=== PATIENT | male | born 1955 | race Caucasian/White ===

== ENCOUNTER 2017-05-16 19:48 | Inpatient (IN) | payer BC ==
[~2017-05-16] VITALS: Ht 175.3 cm; Wt 101.6 kg
[~2017-05-16 19:48] MED LIST: HYG/25 PO; LPD600 PO; LPT40 PO; OMEG12006 PO; ONDA4TAB7 SL; TNR50 PO
[2017-05-16] MEDS ORDERED: METF-384 PO (20:02)
--- NOTE | 2017-05-16 20:36 | DIAGNOSTIC IMAGING REPORT ---
CHEST ONE VIEW PORTABLE CLINICAL HISTORY: sob dyspnea COMPARISON STUDY: 02/15/2015 FINDINGS: Mild stable cardiomegaly. Lungs are clear. Diaphragms are smooth. IMPRESSION: Mild stable cardiomegaly. Otherwise negative study The above report was generated using voice recognition software. It may contain grammatical, syntax or spelling errors. Electronically signed by: Jonah Meza M.D. 05/16/2017 8:34 PM Dictated Date/Time: 05/16/2017 8:34 PM
[2017-05-16 20:46] LABS: MEAN CELL VOLUME 66.3 fL (80-100); MEAN CORPUSCULAR HEMOGLOBIN 18.1 pg (25-34); MEAN CORPUSCULAR HGB CONC 27.3 g/dl (32-36); MEAN PLATELET VOLUME 8.1 fL (7.4-10.4); PARTIAL THROMBOPLASTIN RATIO 0.9; PLATELET COUNT 592 K/uL (130-400); PROTHROMBIN TIME (PATIENT) 10.6 SECONDS (9.0-12.0); RED BLOOD COUNT 3.32 M/uL (4.7-6.1); WHITE BLOOD COUNT 9.65 K/uL (4.8-10.8)
[2017-05-16 20:55] LABS: ALT/SGPT 21 U/L (12-78); BLOOD UREA NITROGEN 20 mg/dl (7-18); BUN/CREATININE RATIO 15.2 (10-20); CALCIUM 8.5 mg/dl (8.5-10.1); CARBON DIOXIDE 27 mmol/L (21-32); CHLORIDE 107 mmol/L (98-107); GLUCOSE 139 mg/dl (70-99); POTASSIUM 3.6 mmol/L (3.5-5.1); SODIUM 141 mmol/L (136-145)
[2017-05-16 20:59] LABS: BASO % 0.5 %; BASO ABS # 0.05 K/uL (0-0.2); COMPLETE YES; EOS % 3.7 %; HYPOCHROMIA PRESENT; IG% 0.4 %; LYMPH % 20.9 %; LYMPH ABS # 2.02 K/uL (1.2-3.4); MICROCYTOSIS PRESENT; MONO % 7.8 %; NEUT % 66.7 %
[2017-05-16 21:00] LABS: ALB/GLOB RATIO 0.8 (0.9-2); ALKALINE PHOSPHATASE 90 U/L (45-117); AST/SGOT 16 U/L (15-37)
[2017-05-16 21:28] VITALS: O2SAT 98; Ht 175.3 cm; Wt 101.6 kg
[2017-05-16 21:48] LABS: MAGNESIUM 1.8 mg/dl (1.8-2.4); THYROID STIMULATING HORMONE 1.66 uIu/ml (0.300-4.500)
[2017-05-16] MEDS ORDERED: POTASSIUM CHLORIDE 10 MEQ TABCR PO STA (21:58)
[2017-05-16] MEDS ORDERED: GLUCOSE 10 TABS/TUBE PO PRN (22:00)
[2017-05-16] MEDS ORDERED: MAGNESIUM SULFATE 1GM / D5W 1 GM in PREMIXED IN D5W 100 ML IV ONE (22:00)
[2017-05-16] MEDS ORDERED: ONDANSETRON INJ 2 MG/ML 2 ML VIAL IV PRN (22:00)
[2017-05-16] MEDS ORDERED: LACTATED RINGER'S 1000ML 1,000 ML IV SCH (22:00)
[2017-05-16] MEDS ORDERED: TRAMADOL HCL 50 MG TAB PO PRN (22:00)
[2017-05-16] MEDS ORDERED: LORAZEPAM 2 MG/ML 1 ML VIAL IV PRN (22:00)
[2017-05-16] MEDS ORDERED: DEXTROSE 50% 50 ML SYR IV PRN (22:00)
[2017-05-16] MEDS ORDERED: GLUCAGON FOR INJ 1 MG VIAL SQ PRN (22:00)
[2017-05-16] MEDS ORDERED: ACETAMINOPHEN 325 MG TAB PO PRN (22:00)
[2017-05-16] MEDS ORDERED: NITROGLYCERIN 0.4 MG SL PER TAB CHARGE SL PRN (22:00)
[2017-05-16] MEDS ORDERED: GLUCOSE 40% GEL 15 GM TUBE PO PRN (22:00)
[2017-05-16] MEDS ORDERED: POTASSIUM CHLORIDE 10 MEQ TABCR ONE (22:03)
--- NOTE | 2017-05-16 22:06 | History and Physical ---
History & Physical Date & Time of Service: May 16, 2017 at 22:05 Chief Complaint: Legs Swelled,Sob Primary Care Physician: Ottoniel Harding M.D. History of Present Illness Source: patient, clinic records, hospital records Recent confinement 2014 under general surgery service for cholecystitis with no posterior abscess formation and possible biliary leak status post laparoscopic cholecystectomy. 2 weeks history of shortness of breath on exertion. No chest pain, no cough symptoms. No symptoms of sleep-disordered breathing as per patient/.. Both legs more swollen than usual. No abdominal pain, no black or bloody stools. No unusual weight loss Denies NSAID intake. Stool Hemoccult noted to be positive at the emergency room. Past Medical/Surgical History Medical Problems: Hypertension Hyperlipidemia Colonic polyps Diabetes type 2 on oral meds Past tobacco abuse Surgeries cholecystectomy urologic procedures 2010 colonoscopy sigmoid colon polyp Family History Diabetes mellitus MOTHER Social History Smoking Status: Former Smoker Alcohol Use: none Drug Use: none Marital Status: Occupational Status: employed, other Multi-Drug Resistant Organisms History of MDRO: No Allergies Coded Allergies: No Known Allergies (Verified , 05/16/17) Home Medications Scheduled Atenolol (Atenolol), 50 MG PO DAILY Atorvastatin (Atorvastatin Calcium), 40 MG PO DAILY Chlorthalidone (Hygroton), 25 MG PO QAM Gemfibrozil (Gemfibrozil), 600 MG PO BID Metformin Hcl (Glucophage), 1 TAB PO BID [place]-3 Fatty Acids ([place] 3), 1 CAPSULE PO DAILY Review of Systems As per history of present illness all other ROS negative Physical Exam Vital Signs Date Time Temp Pulse Resp B/P (MAP) Pulse Ox O2 Delivery O2 Flow Rate FiO2 05/16/17 21:28 98 Room Air 05/16/17 20:25 81 05/16/17 19:51 37.0 90 20 152/72 98 Room Air General Appearance: + obese, + pertinent finding (slight anxious) Head: normocephalic Eyes: + pertinent finding (pale palpebral conjunctivae debacle mucosa) Neck: + pertinent finding (short) Respiratory/Chest: + decreased breath sounds Cardiovascular: regular rate, rhythm Abdomen/GI: soft, + pertinent finding (some distention) Extremities/Musculoskelatal: non-tender, + pertinent finding (minimal lower extremity swelling) Neurologic/Psych: alert, oriented x 3 Skin: + pallor Diagnostics Laboratory Results Results Past 24 Hours Test 05/16/17 20:17 05/16/17 21:18 Range/Units White Blood Count 9.65 4.8-10.8 K/uL Red Blood Count 3.32 4.7-6.1 M/uL Hemoglobin 6.0 14.0-18.0 g/dL Hematocrit 22.0 42-52 % Mean Corpuscular Volume 66.3 80-100 fL Mean Corpuscular Hemoglobin 18.1 25-34 pg Mean Corpuscular Hemoglobin Concent 27.3 32-36 g/dl Platelet Count 592 130-400 K/uL Mean Platelet Volume 8.1 7.4-10.4 fL Neutrophils (%) (Auto) 66.7 % Lymphocytes (%) (Auto) 20.9 % Monocytes (%) (Auto) 7.8 % Eosinophils (%) (Auto) 3.7 % Basophils (%) (Auto) 0.5 % Neutrophils # (Auto) 6.43 1.4-6.5 K/uL Lymphocytes # (Auto) 2.02 1.2-3.4 K/uL Monocytes # (Auto) 0.75 0.11-0.59 K/uL Eosinophils # (Auto) 0.36 0-0.5 K/uL Basophils # (Auto) 0.05 0-0.2 K/uL RDW Standard Deviation 41.9 36.4-46.3 fL RDW Coefficient of Variation 17.3 11.5-14.5 % Immature Granulocyte % (Auto) 0.4 % Immature Granulocyte # (Auto) 0.04 0.00-0.02 K/uL Hypochromasia PRESENT Microcytosis PRESENT Prothrombin Time 10.6 9.0-12.0 SECONDS Prothromb Time International Ratio 1.0 0.9-1.1 Activated Partial Thromboplast Time 24.6 21.0-31.0 SECONDS Partial Thromboplastin Ratio 0.9 D-Dimer 450 0-500 ug/L FEU Sodium Level 141 136-145 mmol/L Potassium Level 3.6 3.5-5.1 mmol/L Chloride Level 107 98-107 mmol/L Carbon Dioxide Level 27 21-32 mmol/L Anion Gap 7.0 3-11 mmol/L Blood Urea Nitrogen 20 7-18 mg/dl Creatinine 1.30 0.60-1.40 mg/dl Est Creatinine Clear Calc Drug Dose 70.6 ml/min Estimated GFR () 68.3 Estimated GFR (Non- 58.9 BUN/Creatinine Ratio 15.2 10-20 Random Glucose 139 70-99 mg/dl Calcium Level 8.5 8.5-10.1 mg/dl Magnesium Level 1.8 1.8-2.4 mg/dl Total Bilirubin 0.2 0.2-1 mg/dl Aspartate Amino Transf (AST/SGOT) 16 15-37 U/L Alanine Aminotransferase (ALT/SGPT) 21 12-78 U/L Alkaline Phosphatase 90 45-117 U/L Troponin I < 0.015 0-0.045 ng/ml Pro-B-Type Natriuretic Peptide 155 0-900 pg/ml Total Protein 7.0 6.4-8.2 gm/dl Albumin 3.2 3.4-5.0 gm/dl Globulin 3.8 2.5-4.0 gm/dl Albumin/Globulin Ratio 0.8 0.9-2 Thyroid Stimulating Hormone (TSH) 1.660 0.300-4.500 uIu/ml CXR normal EKG As per my interpretation: Rate 80, normal sinus rhythm with flattening inferior leads Impression Assessment and Plan AP Shortness of breath secondary to symptomatic anemia Occult GI bleed History colonic polyp on colonoscopy 2010 Rule out right-sided heart failure with concomitant complaints of bilateral lower extremity swelling Hypertension, stable DM 2 on oral meds, well controlled as of recent outpx hemoglobin A1c of 6.6 last December 2016 Past tobacco abuse PCU Transfuse packed RBC to maintain hemoglobin greater then 7 and/or for symptomatic anemia Anemia workup TTE re: SOB w/ leg swelling rule out pulmonary hypertension, right-sided heart failure GI consult re: occult GI bleed, symptomatic anemia ISS BG goal 140-180, patient due for hemoglobin A1c check DVT prophylaxis SCDs re: GI bleed Full code Advanced Directives Existing Living Will: No Existing Power of Easement Worker: No VTE Prophylaxis VTE Risk Assessment Done? Y/N: Yes Risk Level: Moderate
[2017-05-16 22:17] VITALS: BP 134/69; PULSE 81; TEMP 36.7; O2SAT 96
[2017-05-16] MEDS ORDERED: LORAZEPAM INJ 0.5 MG in SYRINGE 0.75 ML IV PRN (22:45)
--- NOTE | 2017-05-16 23:20 | EMERGENCY ROOM VISIT NOTE ---
History First contact with patient: 19:55 Chief Complaint: SWELLING TO EXTREMITY Stated Complaint: SYMPTOMATIC ANEMIA History of Present Illness The patient is a 62 year old male who presents to the Emergency Room with complaints of shortness of breath and leg swelling. The patient states that over the past few weeks, he has had shortness of breath with exertion. 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 However, the patient states that a few days ago he was mowing his lawn with a push mower and had to stop due to shortness of breath. He states his symptoms improved with rest. He also states that over the past 2 days, he has noticed swelling to both of his legs. He denies any pain in the legs. The patient denies any symptoms at this time. He denies chest pain, shortness of breath, nausea, vomiting or diarrhea. He denies any melena or hematochezia. He reports a history of hypertension and cholecystectomy but is otherwise healthy. He denies any cardiac history or history of blood clots. He does not smoke. Review of Systems A complete 10 point review of systems was reviewed with the patient with pertinent positives and negatives as per history of present illness. All else were negative. Past Medical/Surgical History Medical Problems: (1) Abdominal pain (2) Abdominal pain (3) Symptomatic anemia Family History Diabetes mellitus MOTHER Social History Smoking Status: Former Smoker Drug Use: none Marital Status: Housing Status: lives with family Occupation Status: employed Current/Historical Medications Scheduled Atenolol (Atenolol), 50 MG PO DAILY Atorvastatin (Atorvastatin Calcium), 40 MG PO DAILY Chlorthalidone (Hygroton), 25 MG PO QAM Gemfibrozil (Gemfibrozil), 600 MG PO BID Metformin Hcl (Glucophage), 1 TAB PO BID [place]-3 Fatty Acids ([place] 3), 1 CAPSULE PO DAILY Physical Exam Vital Signs Date Time Temp Pulse Resp B/P (MAP) Pulse Ox O2 Delivery O2 Flow Rate FiO2 05/16/17 20:25 81 05/16/17 19:51 37.0 90 20 152/72 98 Room Air Pain Rating (0-10): 0 Physical Exam VITALS: Vitals are noted on the nurse's note and reviewed by myself. Vital signs stable. GENERAL: This is a 62-year-old male, in no acute distress, nondiaphoretic, well- developed well-nourished. SKIN: The skin is pale. HEENT: Normocephalic. PERRLA. EOMI. Nares patent. Mucous membranes moist. Neck is supple without nuchal rigidity. HEART: Regular rate and rhythm without murmurs gallops or rubs. LUNGS: Clear to auscultation bilaterally without wheezes, rales or rhonchi. ABDOMEN: Soft, nontender to palpation. RECTAL: Light brown heme-positive stool. EXTREMITIES: 1+ pitting edema bilaterally. No tenderness of the calves. NEURO: Patient was alert and oriented to person place and time. Medical Decision & Procedures ER Provider Diagnostic Interpretation: CHEST ONE VIEW PORTABLE FINDINGS: Mild stable cardiomegaly. Lungs are clear. Diaphragms are smooth. IMPRESSION: Mild stable cardiomegaly. Otherwise negative study Laboratory Results 05/16/17 20:17 Red Blood Count 3.32, Mean Corpuscular Volume 66.3, Mean Corpuscular Hemoglobin 18.1, Mean Corpuscular Hemoglobin Concent 27.3, Mean Platelet Volume 8.1, Neutrophils (%) (Auto) 66.7, Lymphocytes (%) (Auto) 20.9, Monocytes (%) (Auto) 7.8, Eosinophils (%) (Auto) 3.7, Basophils (%) (Auto) 0.5, Neutrophils # (Auto) 6.43, Lymphocytes # (Auto) 2.02, Monocytes # (Auto) 0.75, Eosinophils # (Auto) 0.36, Basophils # (Auto) 0.05 05/16/17 20:17 Test 05/16/17 20:17 White Blood Count 9.65 K/uL (4.8-10.8) Red Blood Count 3.32 M/uL (4.7-6.1) Hemoglobin 6.0 g/dL (14.0-18.0) Hematocrit 22.0 % (42-52) Mean Corpuscular Volume 66.3 fL (80-100) Mean Corpuscular Hemoglobin 18.1 pg (25-34) Mean Corpuscular Hemoglobin Concent 27.3 g/dl (32-36) Platelet Count 592 K/uL (130-400) Mean Platelet Volume 8.1 fL (7.4-10.4) Neutrophils (%) (Auto) 66.7 % Lymphocytes (%) (Auto) 20.9 % Monocytes (%) (Auto) 7.8 % Eosinophils (%) (Auto) 3.7 % Basophils (%) (Auto) 0.5 % Neutrophils # (Auto) 6.43 K/uL (1.4-6.5) Lymphocytes # (Auto) 2.02 K/uL (1.2-3.4) Monocytes # (Auto) 0.75 K/uL (0.11-0.59) Eosinophils # (Auto) 0.36 K/uL (0-0.5) Basophils # (Auto) 0.05 K/uL (0-0.2) RDW Standard Deviation 41.9 fL (36.4-46.3) RDW Coefficient of Variation 17.3 % (11.5-14.5) Immature Granulocyte % (Auto) 0.4 % Immature Granulocyte # (Auto) 0.04 K/uL (0.00-0.02) Hypochromasia PRESENT Microcytosis PRESENT Prothrombin Time 10.6 SECONDS (9.0-12.0) Prothromb Time International Ratio 1.0 (0.9-1.1) Activated Partial Thromboplast Time 24.6 SECONDS (21.0-31.0) Partial Thromboplastin Ratio 0.9 D-Dimer 450 ug/L FEU (0-500) Anion Gap 7.0 mmol/L (3-11) Est Creatinine Clear Calc Drug Dose 70.6 ml/min Estimated GFR () 68.3 Estimated GFR (Non- 58.9 BUN/Creatinine Ratio 15.2 (10-20) Calcium Level 8.5 mg/dl (8.5-10.1) Magnesium Level 1.8 mg/dl (1.8-2.4) Total Bilirubin 0.2 mg/dl (0.2-1) Aspartate Amino Transf (AST/SGOT) 16 U/L (15-37) Alanine Aminotransferase (ALT/SGPT) 21 U/L (12-78) Alkaline Phosphatase 90 U/L (45-117) Troponin I < 0.015 ng/ml (0-0.045) Pro-B-Type Natriuretic Peptide 155 pg/ml (0-900) Total Protein 7.0 gm/dl (6.4-8.2) Albumin 3.2 gm/dl (3.4-5.0) Globulin 3.8 gm/dl (2.5-4.0) Albumin/Globulin Ratio 0.8 (0.9-2) Thyroid Stimulating Hormone (TSH) 1.660 uIu/ml (0.300-4.500) Medical Decision Differential diagnosis includes anemia, infection, electrolyte imbalance, CHF, pulmonary embolism, among others. The patient is a 62-year-old male who presents today complaining of shortness of breath on exertion. Labs revealed a hemoglobin of 6. Patient has no history of anemia. Rectal exam was performed at this time and found to be heme- positive. Type and cross were ordered. I suspect the patient has likely had a lower GI bleed for some time, as he has been compensating very well for this significant anemia. All findings were discussed with the patient. He will need to be admitted for further workup and blood transfusion. He verbalized understanding of the assessment and treatment plan. Case was discussed with the [facility] hospitalist, Dr. Gomez, who agreed to evaluate the patient for admission. The patient's case was reviewed with Dr. Clifton, ED attending physician, who agreed with my assessment and treatment plan. Medication Reconcilliation Current Medication List: was personally reviewed by me Blood Pressure Screening Patient's blood pressure: Normal blood pressure Impression Primary Impression: Anemia Additional Impression: GI bleed Departure Information Dispostion Admitted as an inpatient Condition GOOD Referrals Ottoniel Harding M.D. (PCP) Forms WORK / SCHOOL INSTRUCTIONS, HOME CARE DOCUMENTATION FORM, IMPORTANT VISIT INFORMATION Patient Instructions My [facility] Problem Qualifiers
[2017-05-16 23:48] VITALS: BP 133/59; PULSE 80; TEMP 36.9; O2SAT 97
[2017-05-17] VITALS (17 sets, daily range): BP systolic 118–151; BP diastolic 62–81; PULSE 56–87; TEMP 36.5–37; O2SAT 94–98
[2017-05-17 05:53] LABS: HEMATOCRIT 23.7 % (42-52); MEAN CELL VOLUME 67.3 fL (80-100); MEAN CORPUSCULAR HEMOGLOBIN 19.3 pg (25-34); MEAN CORPUSCULAR HGB CONC 28.7 g/dl (32-36); MEAN PLATELET VOLUME 8.4 fL (7.4-10.4); PLATELET COUNT 568 K/uL (130-400); RED BLOOD COUNT 3.52 M/uL (4.7-6.1); WHITE BLOOD COUNT 7.56 K/uL (4.8-10.8)
[2017-05-17 06:02] LABS: BASO % 0.9 %; BASO ABS # 0.07 K/uL (0-0.2); COMPLETE YES; EOS % 5.6 %; HYPOCHROMIA PRESENT; IG% 0.4 %; LYMPH % 26.3 %; LYMPH ABS # 1.99 K/uL (1.2-3.4); MICROCYTOSIS PRESENT; MONO % 8.3 %; NEUT % 58.5 %
[2017-05-17 06:07] LABS: FERRITIN 4.1 ng/ml (8.0-388.0)
[2017-05-17] MEDS: INSULIN ASPART 100 UNITS/ML 3 ML PEN SC SCH ×4 (07:00→21:26)
[2017-05-17] MEDS ORDERED: PERFLUTREN LIPID MICROSPHERE (DEFINITY) IV ONE (07:15)
[2017-05-17] MEDS: GEMFIBROZIL 600 MG TAB PO SCH ×2 (07:42→21:23)
[2017-05-17] MEDS: ATORVASTATIN 40 MG TAB PO SCH (07:42)
[2017-05-17 07:56] LABS: ESTIMATED AVERAGE GLUCOSE 154 mg/dl; HA1C FLAG Normal (Normal)
--- NOTE | 2017-05-17 09:29 | Progress Note ---
Medicine Progress Note Date & Time of Visit: May 17, 2017 at 09:06. Subjective Pt was seen and examined Lying in bed with no distress Pt said that he feels fine He said that his energy seems better His lower extremities swelling improved he said that his SOB only occurs on exertion He denies any chest pain, palpitation, dizziness Objective Last 8 Hrs Date Time Temp Pulse Resp B/P (MAP) Pulse Ox O2 Delivery O2 Flow Rate FiO2 05/17/17 08:00 Room Air 05/17/17 07:32 36.9 65 18 131/62 (85) 97 Room Air 05/17/17 06:48 36.6 78 18 131/73 95 05/17/17 06:33 36.6 66 18 136/65 97 05/17/17 04:00 Room Air 05/17/17 03:40 36.8 68 18 135/75 97 05/17/17 02:23 36.8 69 18 149/76 97 05/17/17 01:53 36.5 73 18 151/62 98 05/17/17 01:32 36.5 75 18 118/64 97 05/17/17 01:17 37.0 72 18 138/66 97 Physical Exam: General- No acute distress Head- atraumatic Eyes- PERRL, EOMI ENT- oropharynx clear Neck- supple, no JVD Lungs- clear to auscultation Heart- regular rhythm; no murmur Abdomen- normal bowel sounds, soft, nontender Extremities- trace edema, no calf tenderness Neuro- alert, oriented x 3; PERRL, EOMI; no facial palsy; no dysarthria Skin- warm & dry Laboratory Results: Last 24 Hours Test 05/16/17 20:17 05/17/17 05:25 05/17/17 06:30 White Blood Count 9.65 K/uL 7.56 K/uL Red Blood Count 3.32 M/uL 3.52 M/uL Hemoglobin 6.0 g/dL 6.8 g/dL Hematocrit 22.0 % 23.7 % Mean Corpuscular Volume 66.3 fL 67.3 fL Mean Corpuscular Hemoglobin 18.1 pg 19.3 pg Mean Corpuscular Hemoglobin Concent 27.3 g/dl 28.7 g/dl Platelet Count 592 K/uL 568 K/uL Mean Platelet Volume 8.1 fL 8.4 fL Neutrophils (%) (Auto) 66.7 % 58.5 % Lymphocytes (%) (Auto) 20.9 % 26.3 % Monocytes (%) (Auto) 7.8 % 8.3 % Eosinophils (%) (Auto) 3.7 % 5.6 % Basophils (%) (Auto) 0.5 % 0.9 % Neutrophils # (Auto) 6.43 K/uL 4.42 K/uL Lymphocytes # (Auto) 2.02 K/uL 1.99 K/uL Monocytes # (Auto) 0.75 K/uL 0.63 K/uL Eosinophils # (Auto) 0.36 K/uL 0.42 K/uL Basophils # (Auto) 0.05 K/uL 0.07 K/uL RDW Standard Deviation 41.9 fL 43.9 fL RDW Coefficient of Variation 17.3 % 17.8 % Immature Granulocyte % (Auto) 0.4 % 0.4 % Immature Granulocyte # (Auto) 0.04 K/uL 0.03 K/uL Hypochromasia PRESENT PRESENT Microcytosis PRESENT PRESENT Prothrombin Time 10.6 SECONDS Prothromb Time International Ratio 1.0 Activated Partial Thromboplast Time 24.6 SECONDS Partial Thromboplastin Ratio 0.9 D-Dimer 450 ug/L FEU Sodium Level 141 mmol/L Potassium Level 3.6 mmol/L Chloride Level 107 mmol/L Carbon Dioxide Level 27 mmol/L Anion Gap 7.0 mmol/L Blood Urea Nitrogen 20 mg/dl Creatinine 1.30 mg/dl Est Creatinine Clear Calc Drug Dose 70.6 ml/min Estimated GFR () 68.3 Estimated GFR (Non- 58.9 BUN/Creatinine Ratio 15.2 Random Glucose 139 mg/dl Estimated Average Glucose 154 mg/dl Hemoglobin A1c 7.0 % Calcium Level 8.5 mg/dl Magnesium Level 1.8 mg/dl Total Bilirubin 0.2 mg/dl Aspartate Amino Transf (AST/SGOT) 16 U/L Alanine Aminotransferase (ALT/SGPT) 21 U/L Alkaline Phosphatase 90 U/L Troponin I < 0.015 ng/ml Pro-B-Type Natriuretic Peptide 155 pg/ml Total Protein 7.0 gm/dl Albumin 3.2 gm/dl Globulin 3.8 gm/dl Albumin/Globulin Ratio 0.8 Thyroid Stimulating Hormone (TSH) 1.660 uIu/ml Absolute Reticulocyte Count 0.07 10^6/uL Percent Reticulocyte Count 1.9 % Iron Level 43 mcg/dl Total Iron Binding Capacity 425 mcg/dl Transferrin 354 mg/dl Transferrin % Saturation 9 % Ferritin 4.1 ng/ml Vitamin B12 Level 236 pg/mL Folate 13.93 ng/mL Bedside Glucose 111 mg/dl Assessment & Plan Anemia Present with fatigue and SOB on exertion with Hgb 6 Guaiac positive in the ER Received 2 units PRBC Hbg this morning 6.8 repeat H/H at 1300 Continue gentle IVF Iron panel done that showed low ferritin and transferrin saturation level GI on board Case discussed with GI that plan for EGD this morning Keep NPO for now If EGD negative and hgb stable, can arrange for colonoscopy as an outpatient Monitor h/h Shortness of Breath associated with B/L LE edema that is improved today Possible related to anemia Echo pending to r/o any cardiac etiology CXR is unremarkable HTN Continue atenolol and chlorthalidone BP stable DM Type 2 Hba1c 7 (05/17/17 metformin on hold continue insulin coverage DVT px on SCDs due to anemia and positive FOBT CODE STATUS FULL CODE Consultants: Gastro Current Inpatient Medications: Current Inpatient Medications Medications (Trade) Dose Ordered Sig/Makayla Route Start Time Stop Time Status Last Admin Dose Admin Acetaminophen (Tylenol Tab) 650 mg Q4H PRN PO 05/16/17 22:00 06/15/17 21:59 Nitroglycerin (Nitrostat Tab) 0.4 mg UD PRN SL 05/16/17 22:00 06/15/17 21:59 Insulin Aspart (novoLOG ASPART) SLIDING SCALE If C... ACHS SC 05/17/17 07:00 06/16/17 06:59 Glucose (Glucose 40% Gel) 15-30 GRAMS 15 GRAMS... UD PRN PO 05/16/17 22:00 06/15/17 21:59 Glucose (Glucose Chew Tab) 4-8 Tablets 4 Tabl... UD PRN PO 05/16/17 22:00 06/15/17 21:59 Dextrose (Dextrose 50% 50ML Syringe) 25-50ML OF 50% DW IV FOR... UD PRN IV 05/16/17 22:00 06/15/17 21:59 Glucagon (Glucagon Inj) 1 mg UD PRN SQ 05/16/17 22:00 06/15/17 21:59 Atenolol (Tenormin Tab) 50 mg DAILY PO 05/17/17 09:00 06/16/17 08:59 05/17/17 07:42 50 MG Atorvastatin Calcium (Lipitor Tab) 40 mg DAILY PO 05/17/17 09:00 06/16/17 08:59 05/17/17 07:42 40 MG Gemfibrozil (Lopid Tab) 600 mg BID PO 05/17/17 09:00 06/16/17 08:59 05/17/17 07:42 600 MG Lorazepam (Ativan Inj) 0.5 mg Q4H PRN IV 05/16/17 22:00 06/15/17 21:59 Ondansetron HCl (Zofran Inj) 4 mg Q6H PRN IV 05/16/17 22:00 06/15/17 21:59 Tramadol HCl (Ultram Tab) 25 mg Q6H PRN PO 05/16/17 22:00 06/15/17 21:59 Lactated Ringer's 1,000 ml @ 40 mls/hr Q24H IV 05/16/17 22:00 06/15/17 21:59 05/16/17 22:50 40 MLS/HR Lorazepam 0.5 mg/ Syringe 1 ml @ 1 mls/min Q4H PRN IV 05/16/17 22:45 06/15/17 22:44
[2017-05-17] MEDS ORDERED: LIDOCAINE HCL 2% 2 ML VIAL (20MG/ML) ONE (10:06)
[2017-05-17] MEDS ORDERED: PROPOFOL IV EMULSION 10 MG/ML 20 ML VIAL IV ONE (10:06)
--- NOTE | 2017-05-17 10:48 | Clinical Documentation Query ---
CLINICAL DOCUMENTATION QUERY 62 year old male who presents to the Emergency Room with complaints of shortness of breath and leg swelling. H/H was found to 6.0/22.0. In your clinical opinion is this patient being managed for: ( ) Acute blood loss anemia treated with 2 units of PRBC's ( ) Other explanation of clinical findings (Please Explain) ( ) Unable to determine (Please Define) ( ) Need to Discuss ( ) Not Agree The medical record reflects the following clinical findings, treatment, and risk factors. Clinical Indicators: As above. +FOCB Treatment: 2 units of PRBC's, serial CBC's, GI consult Risk Factors: GI bleeding Please clarify and document your clinical opinion in the progress notes and discharge summary. Terms such as "probable", "suspected", "likely", "questionable", "possible", or "still to be ruled out" are acceptable. IF IN AGREEMENT, YOU MUST DOCUMENT ABOVE DIAGNOSTIC STATEMENT IN DAILY PROGRESS NOTES AND DISCHARGE SUMMARY. This document is not part of the patient's record. Thank You, Castillo Perez, RN [phone]
--- NOTE | 2017-05-17 11:17 | Anesthesiology Progress Note ---
Anesthesia Post Op Note Date & Time May 17, 2017 at 11:16 Vital Signs Pain Intensity: 0 Vital Signs Past 12 Hours Date Time Temp Pulse Resp B/P (MAP) Pulse Ox O2 Delivery O2 Flow Rate FiO2 05/17/17 11:02 64 18 122/61 (81) 94 Room Air 05/17/17 10:06 36.5 58 20 131/84 (100) 96 Room Air 05/17/17 08:00 Room Air 05/17/17 07:32 36.9 65 18 131/62 (85) 97 Room Air 05/17/17 06:48 36.6 78 18 131/73 95 05/17/17 06:33 36.6 66 18 136/65 97 05/17/17 04:00 Room Air 05/17/17 03:40 36.8 68 18 135/75 97 05/17/17 02:23 36.8 69 18 149/76 97 05/17/17 01:53 36.5 73 18 151/62 98 05/17/17 01:32 36.5 75 18 118/64 97 05/17/17 01:17 37.0 72 18 138/66 97 05/17/17 01:02 37.0 75 16 138/67 97 05/17/17 00:47 37.0 73 16 140/68 95 05/16/17 23:59 Room Air 05/16/17 23:48 36.9 80 18 133/59 (83) 97 Room Air Notes Mental Status: alert / awake / arousable, participated in evaluation Pt Amnestic to Procedure: Yes Nausea / Vomiting: adequately controlled Pain: adequately controlled Airway Patency, RR, SpO2: stable & adequate BP & HR: stable & adequate Hydration State: stable & adequate Anesthetic Complications: no major complications apparent
--- NOTE | 2017-05-17 11:20 | GI REPORT ---
Procedure Date: 05/17/2017 10:46 AM Procedure: Upper GI endoscopy Indications: Iron deficiency anemia secondary to chronic blood loss, Heme positive stool Medicines: See the Anesthesia note for documentation of the administered medications Complications: No immediate complications. Estimated Blood Loss: Estimated blood loss was minimal. Procedure: Pre-Anesthesia Assessment: - Prior to the procedure, a History and Physical was performed, and patient medications, allergies and sensitivities were reviewed. The patient's tolerance of previous anesthesia was reviewed. - The risks and benefits of the procedure and the sedation options and risks were discussed with the patient. All questions were answered and informed consent was obtained. - Patient identification and proposed procedure were verified prior to the procedure by the physician and the nurse. The procedure was verified in the pre-procedure area. - Pre-procedure physical examination revealed no contraindications to sedation. - After reviewing the risks and benefits, the patient was deemed in satisfactory condition to undergo the procedure. After obtaining informed consent, the endoscope was passed under direct vision. Throughout the procedure, the patient's blood pressure, pulse, and oxygen saturations were monitored continuously. The Scope was introduced through the mouth, and advanced to the fourth part of the duodenum. Small bowel enteroscopy was deemed necessary due to anemia concerning for small bowel disease. The upper GI endoscopy was accomplished without difficulty. The patient tolerated the procedure well. Findings: The esophagus was normal. The stomach was normal. The duodenum to the 4th part was normal. Biopsies for histology were taken with a cold forceps for evaluation of celiac disease. Verification of patient identification for the specimen was done by the physician and nurse using the patient's name and medical record number. Estimated blood loss was minimal. The cardia and gastric fundus were normal on retroflexion. Impression: - Normal esophagus. - Normal stomach. - Normal duodenum to the 4th part. Biopsied. Recommendation: - Await pathology results. - [facility] to [facility] for [facility] care. Robby Fuller M.D. Robby Fuller MD 05/17/2017 11:19:48 AM This report has been signed electronically. Note Initiated On: 05/17/2017 10:46 AM I attest to the content of the Intraoperative Record and orders documented therein, exceptions below
--- NOTE | 2017-05-17 11:20 | ECHOCARDIOGRAM REPORT ---
*NOTICE TO RECEIVING CONSTITUTION PARTY AGENCY This information is strictly Confidential and protected under [place] law. [place] law prohibits you from making any further disclosure of this information unless further disclosure is expressly permitted by the written consent of the person to whom it pertains or is authorized by law. A general authorization for the release of medical or other information is not sufficient for this purpose. Hospital accepts no responsibility if the information is made available to any other person, INCLUDING THE PATIENT. Interpretation Summary * Name: PAIGE LAWS Study Date: 05/17/2017 06:40 AM BP: 131/62 mmHg * Patient Location: C.2E\S\E205\S\1 HR: 65 * : 1955 (M/d/yyyy) Gender: Male Height: 69 in * Age: 62 yrs Ethnicity: CA Weight: 227 lb * Ordering Physician: Bro Gomez * Referring Physician: Self, Referred * Performed By: Delaney Rowan RDCS * * Reason For Study: SOB * BSA: 2.2 m2 * The study was technically adequate. * There is no comparison study available. * -- Conclusions -- * Ejection Fraction = 60-65%. * There is mild concentric left ventricular hypertrophy. * The left atrium is moderately dilated. * Diastolic dysfunction, Grade II (pseudonormalization pattern). * The right ventricular cavity size is normal (basal dimension <4.2 cm in right ventricular apical 4-chamber view). * The right ventricular systolic function is normal as assessed by tricuspid annular plane systolic excursion (TAPSE) (normal >1.5 cm). * There is trace mitral regurgitation. Procedure Details * A contrast injection of Definity was performed to improve assessment of LV function. * Contrast was injected into an intravenous site in the right arm. * One vial of Definity ultrasound contrast was diluted in normal saline to a total volume of 10 ml. A total of '2' ml of solution was administered during imaging. * Lot # [id number] of Definity utilized for procedure. * Expiration date JUN 15. * The attending nurse who injected the contrast agent was TENNILLE NEWTON RN. * A complete two-dimensional transthoracic echocardiogram was performed (2D, M-mode, Doppler and color flow Doppler). Left Ventricle * The left ventricle is normal in size. * There is mild concentric left ventricular hypertrophy. * Ejection Fraction = 60-65%. * Left ventricular systolic function is normal. * The left ventricular wall motion is normal. Right Ventricle * The right ventricle is normal size. * The right ventricular cavity size is normal (basal dimension <4.2 cm in right ventricular apical 4-chamber view). * The right ventricular systolic function is normal as assessed by tricuspid annular plane systolic excursion (TAPSE) (normal >1.5 cm). Atria * The left atrium is moderately dilated. * Right atrial size is normal. * There is no evidence of atrial septal defect, but resolution does not allow assessment for a patent foramen ovale. Mitral Valve * The mitral valve is normal. * There is no mitral valve stenosis. * There is trace mitral regurgitation. Tricuspid Valve * The tricuspid valve is normal. * There is no tricuspid stenosis. * Significant tricuspid regurgitation is absent. Aortic Valve * The aortic valve is trileaflet. * Aortic stenosis is absent. * There is no significant aortic regurgitation. Pulmonic Valve * The pulmonary valve is not well seen, but the Doppler examination is normal without significant regurgitation or stenosis. Great Vessels * The aortic root is normal size. Pericardium/Pleural * There is no pericardial effusion. Great Vessels * IVC not well visualized. Left Ventricular Diastolic Function * Diastolic dysfunction, Grade II (pseudonormalization pattern). MMode 2D Measurements and Calculations IVSd 1.4 cm IVSs 1.8 cm LVIDd 5.1 cm LVIDs 3.3 cm LVPWd 1.3 cm LVPWs 2.1 cm IVS/LVPW 1.1 FS 34.1 % EDV(Teich) 121.6 ml ESV(Teich) 45.4 ml EF(Teich) 62.7 % EDV(cubed) 129.6 ml ESV(cubed) 37.2 ml EF(cubed) 71.3 % % IVS thick 28.9 % % LVPW thick 58.7 % LV mass(C)d 284.1 grams LV mass(C)dI 130.3 grams/m\S\2 LV mass(C)s 284.5 grams LV mass(C)sI 130.5 grams/m\S\2 SV(Teich) 76.3 ml SI(Teich) 35.0 ml/m\S\2 SV(cubed) 92.5 ml SI(cubed) 42.4 ml/m\S\2 LA dimension 4.8 cm LVAd ap4 44.4 cm\S\2 LVLd ap4 10.0 cm EDV(MOD-sp4) 158.0 ml LVAs ap4 24.9 cm\S\2 LVLs ap4 8.7 cm ESV(MOD-sp4) 60.9 ml EF(MOD-sp4) 61.5 % LVAd ap2 41.0 cm\S\2 LVLd ap2 8.8 cm EDV(MOD-sp2) 159.0 ml LVAs ap2 26.6 cm\S\2 LVLs ap2 8.2 cm ESV(MOD-sp2) 71.1 ml EF(MOD-sp2) 55.3 % SV(MOD-sp4) 97.1 ml SI(MOD-sp4) 44.5 ml/m\S\2 SV(MOD-sp2) 87.9 ml SI(MOD-sp2) 40.3 ml/m\S\2 Doppler Measurements and Calculations MV E max vincent 113.8 cm/sec MV A max vincent 85.9 cm/sec MV E/A 1.3 MV dec time 0.20 sec Ao V2 max 148.4 cm/sec Ao max PG 8.8 mmHg Ao max PG (full) 3.7 mmHg LV V1 max PG 5.1 mmHg LV V1 max 113.2 cm/sec
--- NOTE | 2017-05-17 11:35 | Gastrointestinal Consultation ---
Gastrointestinal Consultation Date of Consultation: May 17, 2017 Attending Physician: Dr. Guerin; consult from Dr. Gomez Consulting Physician: Dr. Fuller Reason for Consultation: Occult GI bleed History of Present Illness Patient is a 62 year old male patient of Dr. Harding with a history of hypertension, hyperlipidemia, type 2 diabetes who presented to the emergency department yesterday with a report of 2 weeks of shortness of breath. On arrival, he was found to be anemic with hemoglobin of 6. He was given 1 unit of blood and hemoglobin this morning is 6.8. His MCV was low at 66, INR is normal. He is not on any anticoagulants. His iron level was normal but ferritin was low (4.1). GI is consulted for an "occult GI bleed." The patient is awake alert oriented and he's actually ambulating in the room. He denies any history of black bloody or tarry stools. No nausea vomiting or abdominal pain. He denies any ibuprofen or naproxen or other NSAID use and he is not on any steroids. He does not have any history of reflux and is not on any acid suppression medications. Past Medical/Surgical History Medical Problems: (1) Anemia Status: Acute (2) GI bleed Status: Acute Past Medical History: 1. Hypertension 2. Hyperlipidemia. 3. DM 2. 4. Prior smoker. Past Surgical History: 1. Colonoscopy 12/09/[address] Keita for screenning: one 2 mm sigmoid polyp, path positive for tubular adenoma and recommendation is for surveillance colonoscopy in 5 yrs (was due in 2015). 2. Cholecystectomy. 3. Urologic procedures. Family History Diabetes mellitus MOTHER Social History Smoking Status: Former Smoker Drug Use: none Marital Status: Housing Status: lives with family Occupation Status: employed, other Allergies Coded Allergies: No Known Allergies (Verified , 05/16/17) Current Medications Home Meds and Scripts Medications Dose Route/Sig Max Daily Dose Days Date Category Glucophage (Metformin Hcl) 1,000 Mg Tab 1 Tab PO BID 05/16/17 Reported Gemfibrozil 600 Mg Tab 600 Mg PO BID 02/06/15 Reported Atenolol 50 Mg Tab 50 Mg PO DAILY 02/06/15 Reported Atorvastatin Calcium (Atorvastatin) 40 Mg Tab 40 Mg PO DAILY 02/06/15 Reported [place] 3 ([place]-3 Fatty Acids) 1 Cap Cap 1 Capsule PO DAILY 02/04/13 Reported [place] (Chlorthalidone) 25 Mg Tab 25 Mg PO QAM 02/04/13 Reported Review of Systems Constitutional: No fever, No chills, No sweats, No weight loss, No weakness Eyes: No eye pain, No redness ENT: No sore throat, No trouble swallowing, No pain on swallowing Respiratory: No cough, No wheezing, No shortness of breath, No dyspnea on exertion Cardiac: No chest pain, No edema, No palpitations Abdomen: + see HPI Neuro: No memory loss, No weakness, No numbness/tingling, No vertigo, No balance problems Psych: No depression symptoms, No anxiety, No insomnia Heme: No abnormal bleeding/bruising, No night sweats Endo: No excessive thirst, No excessive urination Skin: No rash, No itch, No new/changing skin lesions, No jaundice Physical Exam Date Time Temp Pulse Resp B/P (MAP) Pulse Ox O2 Delivery O2 Flow Rate FiO2 05/17/17 11:17 62 18 123/67 (85) 93 Room Air 05/17/17 11:02 64 18 122/61 (81) 94 Room Air 05/17/17 10:06 36.5 58 20 131/84 (100) 96 Room Air 05/17/17 08:48 36.8 84 18 130/76 96 05/17/17 08:00 Room Air 05/17/17 07:48 37.0 87 18 126/74 97 05/17/17 07:32 36.9 65 18 131/62 (85) 97 Room Air 05/17/17 06:48 36.6 78 18 131/73 95 05/17/17 06:33 36.6 66 18 136/65 97 05/17/17 04:00 Room Air 05/17/17 03:40 36.8 68 18 135/75 97 05/17/17 02:23 36.8 69 18 149/76 97 05/17/17 01:53 36.5 73 18 151/62 98 05/17/17 01:32 36.5 75 18 118/64 97 05/17/17 01:17 37.0 72 18 138/66 97 05/17/17 01:02 37.0 75 16 138/67 97 05/17/17 00:47 37.0 73 16 140/68 95 05/16/17 23:59 Room Air 05/16/17 23:48 36.9 80 18 133/59 (83) 97 Room Air 05/16/17 22:17 36.7 81 16 134/69 (90) 96 Room Air 05/16/17 22:06 80 20 136/71 98 Room Air 05/16/17 21:28 98 Room Air 05/16/17 20:25 81 05/16/17 19:51 37.0 90 20 152/72 98 Room Air General Appearance: no apparent distress Eyes: normal inspection, EOMI Neck: supple, no adenopathy, thyroid normal Respiratory/Chest: chest non-tender, lungs clear, normal breath sounds, no accessory muscle use Cardiovascular: regular rate, rhythm, no JVD, no murmur Abdomen: normal bowel sounds, non tender, soft, no organomegaly Extremities: normal inspection, no pedal edema, normal capillary refill Neurologic/Psych: alert, normal mood/affect, oriented x 3 Skin: normal color, no jaundice, warm/dry, no rash Laboratory Results Last 24 Hours Test 05/16/17 20:17 05/17/17 05:25 05/17/17 06:30 05/17/17 10:37 White Blood Count 9.65 K/uL 7.56 K/uL Red Blood Count 3.32 M/uL 3.52 M/uL Hemoglobin 6.0 g/dL 6.8 g/dL Hematocrit 22.0 % 23.7 % Mean Corpuscular Volume 66.3 fL 67.3 fL Mean Corpuscular Hemoglobin 18.1 pg 19.3 pg Mean Corpuscular Hemoglobin Concent 27.3 g/dl 28.7 g/dl Platelet Count 592 K/uL 568 K/uL Mean Platelet Volume 8.1 fL 8.4 fL Neutrophils (%) (Auto) 66.7 % 58.5 % Lymphocytes (%) (Auto) 20.9 % 26.3 % Monocytes (%) (Auto) 7.8 % 8.3 % Eosinophils (%) (Auto) 3.7 % 5.6 % Basophils (%) (Auto) 0.5 % 0.9 % Neutrophils # (Auto) 6.43 K/uL 4.42 K/uL Lymphocytes # (Auto) 2.02 K/uL 1.99 K/uL Monocytes # (Auto) 0.75 K/uL 0.63 K/uL Eosinophils # (Auto) 0.36 K/uL 0.42 K/uL Basophils # (Auto) 0.05 K/uL 0.07 K/uL RDW Standard Deviation 41.9 fL 43.9 fL RDW Coefficient of Variation 17.3 % 17.8 % Immature Granulocyte % (Auto) 0.4 % 0.4 % Immature Granulocyte # (Auto) 0.04 K/uL 0.03 K/uL Hypochromasia PRESENT PRESENT Microcytosis PRESENT PRESENT Prothrombin Time 10.6 SECONDS Prothromb Time International Ratio 1.0 Activated Partial Thromboplast Time 24.6 SECONDS Partial Thromboplastin Ratio 0.9 D-Dimer 450 ug/L FEU Sodium Level 141 mmol/L Potassium Level 3.6 mmol/L Chloride Level 107 mmol/L Carbon Dioxide Level 27 mmol/L Anion Gap 7.0 mmol/L Blood Urea Nitrogen 20 mg/dl Creatinine 1.30 mg/dl Est Creatinine Clear Calc Drug Dose 70.6 ml/min Estimated GFR () 68.3 Estimated GFR (Non- 58.9 BUN/Creatinine Ratio 15.2 Random Glucose 139 mg/dl Estimated Average Glucose 154 mg/dl Hemoglobin A1c 7.0 % Calcium Level 8.5 mg/dl Magnesium Level 1.8 mg/dl Total Bilirubin 0.2 mg/dl Aspartate Amino Transf (AST/SGOT) 16 U/L Alanine Aminotransferase (ALT/SGPT) 21 U/L Alkaline Phosphatase 90 U/L Troponin I < 0.015 ng/ml Pro-B-Type Natriuretic Peptide 155 pg/ml Total Protein 7.0 gm/dl Albumin 3.2 gm/dl Globulin 3.8 gm/dl Albumin/Globulin Ratio 0.8 Thyroid Stimulating Hormone (TSH) 1.660 uIu/ml Absolute Reticulocyte Count 0.07 10^6/uL Percent Reticulocyte Count 1.9 % Iron Level 43 mcg/dl Total Iron Binding Capacity 425 mcg/dl Transferrin 354 mg/dl Transferrin % Saturation 9 % Ferritin 4.1 ng/ml Vitamin B12 Level 236 pg/mL Folate 13.93 ng/mL Bedside Glucose 111 mg/dl Impression Patient is a 62 year old male with iron deficiency anemia. Differentials considered are gastritis, ulcer disease, colon cancer. Plan 1. EGD this morning by Dr. Fuller I have personally seen and examined the patient with Lorella Giovani, [employer]. Her note reflects my exam and findings. I agree with her impression and plan. Given anemia and heme + stool, will arrange EGD today to look for high risk bleeding site. Robby Fuller M.D. Addendum: EGD was completely normal duodenal biopsies were taken to rule out celiac disease. Patient should have a colonoscopy. An order was placed in the outpatient at the system for this to be scheduled in the next few weeks. If colonoscopy is negative then we'll go forward with video capsule endoscopy. No GI contraindication to discharge and patient may have a regular diet.
[2017-05-17 12:38] LABS: HEMATOCRIT 27.8 % (42-52)
[2017-05-17] MEDS ORDERED: NURSING VERBAL MED ORDER ONE (17:15)
[2017-05-18] VITALS: O2SAT 94
[2017-05-18 03:21] VITALS: BP 97/62; PULSE 64; TEMP 36.6; O2SAT 94
[2017-05-18 04:00] VITALS: O2SAT 94
[2017-05-18 06:51] LABS: HEMATOCRIT 27.3 % (42-52); MEAN CELL VOLUME 68.8 fL (80-100); MEAN CORPUSCULAR HEMOGLOBIN 19.9 pg (25-34); MEAN CORPUSCULAR HGB CONC 28.9 g/dl (32-36); MEAN PLATELET VOLUME 8.6 fL (7.4-10.4); PLATELET COUNT 565 K/uL (130-400); RED BLOOD COUNT 3.97 M/uL (4.7-6.1); WHITE BLOOD COUNT 8.35 K/uL (4.8-10.8)
[2017-05-18 06:54] LABS: BASO % 0.6 %; BASO ABS # 0.05 K/uL (0-0.2); COMPLETE YES; EOS % 4.8 %; HYPOCHROMIA PRESENT; IG% 0.2 %; LYMPH % 17.2 %; LYMPH ABS # 1.44 K/uL (1.2-3.4); MICROCYTOSIS PRESENT; MONO % 6.9 %; NEUT % 70.3 %
[2017-05-18] MEDS: INSULIN ASPART 100 UNITS/ML 3 ML PEN SC SCH (07:00)
[2017-05-18 07:40] VITALS: BP 124/60; PULSE 65; TEMP 36.5; O2SAT 97
[2017-05-18] MEDS: GEMFIBROZIL 600 MG TAB PO SCH (07:48)
[2017-05-18] MEDS: ATORVASTATIN 40 MG TAB PO SCH (07:48)
--- NOTE | 2017-05-18 09:58 | Progress Note ---
Medicine Progress Note Date & Time of Visit: May 18, 2017 at 09:45. Subjective Pt was seen and examined Sitting in chair comfortable with no distress Pt said that he feels fine He did a couple lap today in the hallway with no discomfort He said that he is leg was a little sore after the lap he denies any chest pain, palpitation, dizziness and SOB Objective Last 8 Hrs Date Time Temp Pulse Resp B/P (MAP) Pulse Ox O2 Delivery O2 Flow Rate FiO2 05/18/17 08:00 Room Air 05/18/17 07:40 36.5 65 18 124/60 (81) 97 Room Air 05/18/17 04:00 94 Room Air 05/18/17 03:21 36.6 64 20 97/62 (74) 94 Room Air Physical Exam: General- No acute distress Head- atraumatic Eyes- PERRL, EOMI ENT- oropharynx clear Neck- supple, no JVD Lungs- clear to auscultation Heart- regular rhythm; no murmur Abdomen- normal bowel sounds, soft, nontender Extremities- trace edema, no calf tenderness Neuro- alert, oriented x 3; PERRL, EOMI; no facial palsy; no dysarthria Skin- warm & dry Laboratory Results: Last 24 Hours Test 05/17/17 11:46 05/17/17 12:12 05/17/17 16:34 05/17/17 18:05 Bedside Glucose 115 mg/dl 208 mg/dl Hemoglobin 8.1 g/dL 7.9 g/dL Hematocrit 27.8 % 27.0 % Hepatitis C Antibody Screen NEG Test 05/17/17 20:36 05/18/17 05:51 05/18/17 06:24 Bedside Glucose 258 mg/dl 158 mg/dl White Blood Count 8.35 K/uL Red Blood Count 3.97 M/uL Hemoglobin 7.9 g/dL Hematocrit 27.3 % Mean Corpuscular Volume 68.8 fL Mean Corpuscular Hemoglobin 19.9 pg Mean Corpuscular Hemoglobin Concent 28.9 g/dl Platelet Count 565 K/uL Mean Platelet Volume 8.6 fL Neutrophils (%) (Auto) 70.3 % Lymphocytes (%) (Auto) 17.2 % Monocytes (%) (Auto) 6.9 % Eosinophils (%) (Auto) 4.8 % Basophils (%) (Auto) 0.6 % Neutrophils # (Auto) 5.86 K/uL Lymphocytes # (Auto) 1.44 K/uL Monocytes # (Auto) 0.58 K/uL Eosinophils # (Auto) 0.40 K/uL Basophils # (Auto) 0.05 K/uL RDW Standard Deviation 47.1 fL RDW Coefficient of Variation 18.8 % Immature Granulocyte % (Auto) 0.2 % Immature Granulocyte # (Auto) 0.02 K/uL Hypochromasia PRESENT Microcytosis PRESENT Assessment & Plan Anemia Present with fatigue and SOB on exertion with Hgb 6 Guaiac positive in the ER Received 2 units PRBC Hbg this morning 7.9 repeat H/H at 1300 Continue gentle IVF Iron panel done that showed low ferritin and transferrin saturation level GI on board Case discussed with GI that plan for EGD this morning Keep NPO for now If EGD negative and hgb stable, can arrange for colonoscopy as an outpatient Monitor h/h 05/18 Clinically stable Hbg today 7.9 EGD done yesterday was normal Low ferritin and transferrin saturation level Low MCV on cbc will start on iron supplement GI on board Will arrange for outpatient colonoscopy in the next few weeks check CBC in 1 week Advised pt to avoid NSAID such as motrin, ibuprofen, naproxen, aleve Shortness of Breath associated with B/L LE edema that is improved today Possible related to anemia CXR is unremarkable Clinically improved Echo done showed: * Ejection Fraction = 60-65%. * There is mild concentric left ventricular hypertrophy. * The left atrium is moderately dilated. * Diastolic dysfunction, Grade II (pseudonormalization pattern). * The right ventricular cavity size is normal (basal dimension <4.2 cm in right ventricular apical 4-chamber view). * The right ventricular systolic function is normal as assessed by tricuspid annular plane systolic excursion (TAPSE) (normal >1.5 cm). * There is trace mitral regurgitation. HTN Continue atenolol and chlorthalidone BP stable DM Type 2 Hba1c 7 (05/17/17) metformin on hold continue insulin coverage DVT px on SCDs due to anemia and positive FOBT CODE STATUS FULL CODE Consultants: Gastro Procedures: EGD Current Inpatient Medications: Current Inpatient Medications Medications (Trade) Dose Ordered Sig/Makayla Route Start Time Stop Time Status Last Admin Dose Admin Acetaminophen (Tylenol Tab) 650 mg Q4H PRN PO 05/16/17 22:00 06/15/17 21:59 Nitroglycerin (Nitrostat Tab) 0.4 mg UD PRN SL 05/16/17 22:00 06/15/17 21:59 Insulin Aspart (novoLOG ASPART) SLIDING SCALE If C... ACHS SC 05/17/17 07:00 06/16/17 06:59 05/17/17 21:26 2 UNITS Glucose (Glucose 40% Gel) 15-30 GRAMS 15 GRAMS... UD PRN PO 05/16/17 22:00 06/15/17 21:59 Glucose (Glucose Chew Tab) 4-8 Tablets 4 Tabl... UD PRN PO 05/16/17 22:00 06/15/17 21:59 Dextrose (Dextrose 50% 50ML Syringe) 25-50ML OF 50% DW IV FOR... UD PRN IV 05/16/17 22:00 06/15/17 21:59 Glucagon (Glucagon Inj) 1 mg UD PRN SQ 05/16/17 22:00 06/15/17 21:59 Atenolol (Tenormin Tab) 50 mg DAILY PO 05/17/17 09:00 06/16/17 08:59 05/18/17 07:48 50 MG Atorvastatin Calcium (Lipitor Tab) 40 mg DAILY PO 05/17/17 09:00 06/16/17 08:59 05/18/17 07:48 40 MG Gemfibrozil (Lopid Tab) 600 mg BID PO 05/17/17 09:00 06/16/17 08:59 05/18/17 07:48 600 MG Lorazepam (Ativan Inj) 0.5 mg Q4H PRN IV 05/16/17 22:00 06/15/17 21:59 Ondansetron HCl (Zofran Inj) 4 mg Q6H PRN IV 05/16/17 22:00 06/15/17 21:59 Tramadol HCl (Ultram Tab) 25 mg Q6H PRN PO 05/16/17 22:00 06/15/17 21:59 Lorazepam 0.5 mg/ Syringe 1 ml @ 1 mls/min Q4H PRN IV 05/16/17 22:45 06/15/17 22:44
[2017-05-18 10:39] VITALS: BP 124/60; PULSE 65; TEMP 36.5; O2SAT 97
[2017-05-18 11:05] VITALS: BP 138/72; PULSE 68; TEMP 36.8; O2SAT 99
[2017-05-18] MEDS ORDERED: FERR325T5 PO (11:32)
--- NOTE | 2017-05-18 11:40 | Discharge Instructions ---
Discharge Instructions Date of Service May 18, 2017. Admission Reason for Admission: Symptomatic Anemia Discharge Discharge Diagnosis / Problem: Anemia, HTN, DM type 2 Discharge Goals Goal(s): Decrease discomfort, Improve function, Improve disease control Activity Recommendations Activity Limitations: resume your previous activity (increase gradually as tolerated) . Instructions / Follow-Up Instructions / Follow-Up Follow up with your primary care provider Dr. Harding on 05/21 @ 6:30 pm Follow up with Gastro to arrange for colonoscopy (gastro's office will call you for the appointment and instructions) Check CBC with 1 week to monitor your hemoglobin Avoid NSAIDs such as motrin, aleve, naproxen, ibuprofen to lower the risk of bleeding Continue iron supplement If you see blood in your stool or urine, please seek medical attention Current Hospital Diet Patient's current hospital diet: Diabetes Type 2 Diet, AHA Diet (Heart Healthy) Discharge Diet Recommended Diet: AHA Diet (Heart Healthy) Procedures Procedures Performed: BX RANDOM DOUDENUM EGD Pending Studies Studies pending at discharge: no List of pending studies: Follow up biopsy Laboratory Results Hemoglobin A1c Test 05/16/17 20:17 Range/Units Estimated Average Glucose 154 mg/dl Hemoglobin A1c 7.0 H 4.5-5.6 % Medical Emergencies . Who to Call and When: Medical Emergencies: If at any time you feel your situation is an emergency, please call 911 immediately. . Non-Emergent Contact Non-Emergency issues call your: Primary Care Provider Call Non-Emergent contact if: you have any medication questions . . "Provider Documentation" section prepared by Sanam Guerin. . VTE Core Measure Inpt VTE Proph given/why not?: SCD's, Contraindicated
--- NOTE | 2017-05-19 10:12 | Discharge Summary ---
Discharge Summary Date of Service May 19, 2017. Discharge Summary Admission Date: May 16, 2017 at 21:20 Discharge Date: May 18, 2017 Discharge Disposition: Home Principal Diagnosis: Anemia Secondary Diagnoses/Problems: HTN DM Type 2 Procedures: EGD Consultations: Gastro Medication Reconciliation New Medications: Ferrous Sulfate (Ferrous Sulfate) 325 Mg Tab 325 MG PO DAILY for 30 Days, #30 TAB Continued Medications: Atenolol (Atenolol) 50 Mg Tab 50 MG PO DAILY Atorvastatin (Atorvastatin Calcium) 40 Mg Tab 40 MG PO DAILY Chlorthalidone (Hygroton) 25 Mg Tab 25 MG PO QAM, TAB Gemfibrozil (Gemfibrozil) 600 Mg Tab 600 MG PO BID Metformin Hcl (Glucophage) 1,000 Mg Tab 1 TAB PO BID, #60 Braman-3 Fatty Acids (Braman 3) 1 Cap Cap 1 CAPSULE PO DAILY Admission Information HPI (per Admitting provider): Recent confinement 2014 under general surgery service for cholecystitis with no posterior abscess formation and possible biliary leak status post laparoscopic cholecystectomy. 2 weeks history of shortness of breath on exertion. No chest pain, no cough symptoms. No symptoms of sleep-disordered breathing as per patient/.. Both legs more swollen than usual. No abdominal pain, no black or bloody stools. No unusual weight loss Denies NSAID intake. Stool Hemoccult noted to be positive at the emergency room. Physical Exam (per Admitting): General Appearance: + obese, + pertinent finding (slight anxious) Head: normocephalic Eyes: + pertinent finding (pale palpebral conjunctivae debacle mucosa) Neck: + pertinent finding (short) Respiratory/Chest: + decreased breath sounds Cardiovascular: regular rate, rhythm Abdomen/GI: soft, + pertinent finding (some distention) Extremities/Musculoskelatal: non-tender, + pertinent finding (minimal lower extremity swelling) Neurologic/Psych: alert, oriented x 3 Skin: + pallor Hospital Course Anemia Present with fatigue and SOB on exertion with Hgb 6 Guaiac positive in the ER Received 2 units PRBC Hbg this morning 7.9 repeat H/H at 1300 Continue gentle IVF Iron panel done that showed low ferritin and transferrin saturation level GI on board Case discussed with GI that plan for EGD this morning Keep NPO for now If EGD negative and hgb stable, can arrange for colonoscopy as an outpatient Monitor h/h 05/18 Clinically stable Hbg today 7.9 EGD done yesterday was normal Low ferritin and transferrin saturation level Low MCV on cbc will start on iron supplement GI on board Will arrange for outpatient colonoscopy in the next few weeks check CBC in 1 week Advised pt to avoid NSAID such as motrin, ibuprofen, naproxen, aleve Shortness of Breath associated with B/L LE edema that is improved today Possible related to anemia CXR is unremarkable Clinically improved Echo done showed: * Ejection Fraction = 60-65%. * There is mild concentric left ventricular hypertrophy. * The left atrium is moderately dilated. * Diastolic dysfunction, Grade II (pseudonormalization pattern). * The right ventricular cavity size is normal (basal dimension <4.2 cm in right ventricular apical 4-chamber view). * The right ventricular systolic function is normal as assessed by tricuspid annular plane systolic excursion (TAPSE) (normal >1.5 cm). * There is trace mitral regurgitation. HTN Continue atenolol and chlorthalidone BP stable DM Type 2 Hba1c 7 (05/17/17) metformin on hold continue insulin coverage DVT px on SCDs due to anemia and positive FOBT CODE STATUS FULL CODE Total time spent on discharge = 35 minutes This includes examination of the patient, discharge planning, medication reconciliation, and communication with other providers. Discharge Instructions Discharge Instructions Date of Service May 18, 2017. Admission Reason for Admission: Symptomatic Anemia Discharge Discharge Diagnosis / Problem: Anemia, HTN, DM type 2 Discharge Goals Goal(s): Decrease discomfort, Improve function, Improve disease control Activity Recommendations Activity Limitations: resume your previous activity (increase gradually as tolerated) . Instructions / Follow-Up Instructions / Follow-Up Follow up with your primary care provider Dr. Harding on 05/21 @ 6:30 pm Follow up with Gastro to arrange for colonoscopy (gastro's office will call you for the appointment and instructions) Check CBC with 1 week to monitor your hemoglobin Avoid NSAIDs such as motrin, aleve, naproxen, ibuprofen to lower the risk of bleeding Continue iron supplement If you see blood in your stool or urine, please seek medical attention Current Hospital Diet Patient's current hospital diet: Diabetes Type 2 Diet, AHA Diet (Heart Healthy) Discharge Diet Recommended Diet: AHA Diet (Heart Healthy) Procedures Procedures Performed: BX RANDOM DOUDENUM EGD Pending Studies Studies pending at discharge: no List of pending studies: Follow up biopsy Laboratory Results Hemoglobin A1c Test 05/16/17 20:17 Range/Units Estimated Average Glucose 154 mg/dl Hemoglobin A1c 7.0 H 4.5-5.6 % Medical Emergencies . Who to Call and When: Medical Emergencies: If at any time you feel your situation is an emergency, please call 911 immediately. . Non-Emergent Contact Non-Emergency issues call your: Primary Care Provider Call Non-Emergent contact if: you have any medication questions . . "Provider Documentation" section prepared by Sanam Guerin. . VTE Core Measure Inpt VTE Proph given/why not?: SCD's, Contraindicated Additional Copies To Ottoniel Harding M.D.
== END 2017-05-18 12:11 | disposition home or self-care (01) | DRG 379 ==
LOC: C.EDB 19:48 → C.2E 21:20 → ENRESERV 21:25
PROVIDERS: ADMIT Internal Medicine; ATTEND Internal Medicine
PROC: 0DB98ZX Excision of Duodenum, Via Natural or Artificial Opening Endoscopic, Diagnostic (ICD-10-PCS; principal; 2017-05-17 09:58)
DX: K92.2 Gastrointestinal hemorrhage, unspecified (principal); D50.0 Iron deficiency anemia secondary to blood loss (chronic); R06.02 Shortness of breath; I10 Essential (primary) hypertension; E11.9 Type 2 diabetes mellitus without complications; E78.5 Hyperlipidemia, unspecified; Z87.891 Personal history of nicotine dependence; Z79.84 Long term (current) use of oral hypoglycemic drugs; Z79.899 Other long term (current) drug therapy